=== PATIENT | female | born 1980 | race American Indian/Alaskan Native ===

== ENCOUNTER 2019-04-10 23:32 | Emergency (ER) | payer MEDICAID ==
[2019-04-11 00:41] LABS: Bilirubin,Urine NEG (Negative); Blood,Urine SM (Negative); Color,Urine Yellow (Yellow); Mucus,Urine 1+ /HPF; Protein,Urine <15 mg/dL mg/dL (Negative); Urobilinogen,Urine < 2.0 mg/dL (<2.0)
[2019-04-11] MEDS ORDERED: ZITHROMAX PO ONE (01:26)
[2019-04-11] MEDS ORDERED: ROCEPHIN IM ONE (01:27)
[2019-04-11] MEDS ORDERED: XYLOCAINE 1% MPF 5 mL INFILTRATI ONE (01:27)
--- NOTE | 2019-04-11 01:29 | Emergency Department Report ---
HPI - General Chief Complaint: Urogenital-Female Time Seen by Provider: 04/11/19 00:46 - HPI HPI: Room 40 The patient is a 38-year-old female presenting with a chief complaint of "I think I have an STD." The patient states 1 day she's had vaginal irritation and swelling. Patient states she's had vaginal discharge for one day and has been white in color. Patient is to dysuria but denies hematuria. Patient denies history of fever ED Past Medical Hx - Past Medical History Previous Medical History?: No - Surgical History Past Surgical History?: No Hx Cholecystectomy: Yes Additional Surgical History: Right-sided ectopic - Family History Family history: no significant - Social History Smoking Status: Never Smoker Substance Use Type: None - Medications Home Medications: Home Medications Medication Instructions Recorded Confirmed Last Taken Type Doxycycline Hyclate [Doxycycline 100 mg PO Q12HR #14 tab 04/11/19 Unknown Rx Hyclate TAB] Ibuprofen [Motrin 800 MG tab] 800 mg PO Q8HR PRN #20 tablet 04/11/19 Unknown Rx Phenazopyridine [Pyridium] 200 mg PO TID #6 tab 04/11/19 Unknown Rx ED Review of Systems ROS: Stated complaint: POSS STD/VAGINAL BURNING Other details as noted in HPI Constitutional: denies: fever Eyes: denies: eye pain ENT: denies: throat pain Respiratory: no symptoms reported Cardiovascular: denies: chest pain Endocrine: no symptoms reported Gastrointestinal: denies: abdominal pain Genitourinary: dysuria, discharge. denies: hematuria Musculoskeletal: denies: back pain Neurological: denies: headache Physical Exam - Physical Exam Physical Exam: GENERAL: The patient is well-developed well-nourished female lying on stretcher not appearing to be in acute distress. [] HEENT: Normocephalic. Atraumatic. Extraocular motions are intact. Patient has moist mucous membranes. NECK: Supple. Trachea midline CHEST/LUNGS: Clear to auscultation. There is no respiratory distress noted. HEART/CARDIOVASCULAR: Regular. There is no tachycardia. There is no gallop rub or murmur. ABDOMEN: Abdomen is soft, nontender. Patient has normal bowel sounds. There is no abdominal distention. SKIN: There is no rash. There is no edema. There is no diaphoresis. NEURO: The patient is awake, alert, and oriented. The patient is cooperative. The patient has normal speech MUSCULOSKELETAL: There is no evidence of acute injury. PELVIC: Moderate amount of white discharge present in the vault ED Medical Decision Making - Lab Data Laboratory Tests 04/10/19 04/11/19 Unknown Unknown Urine Color Yellow Urine Turbidity Slightly-cloudy Urine pH 5.0 Ur Specific [place] 1.028 Urine Protein <15 mg/dl Urine Glucose (UA) Neg Urine Ketones Neg Urine Blood Sm Urine Nitrite Neg Urine Bilirubin Neg Urine Urobilinogen < 2.0 Ur Leukocyte Esterase Mod Urine WBC (Auto) 5.0 Urine RBC (Auto) 9.0 U Epithel Cells (Auto) 4.0 Urine Mucus 1+ Urine HCG, Qual Negative Wet prep-no clue cells, no Trichomonas, no yeast - Differential Diagnosis vaginitis, bacterial vaginosis, urethritis, Critical care attestation.: If time is entered above; I have spent that time in minutes in the direct care of this critically ill patient, excluding procedure time. 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 Please follow up with her for further evaluation) Time of Disposition: 03:07
[2019-04-11 01:41] LABS: HCG Qualitative,Urine Negative (Negative)
[2019-04-11 03:13] VITALS: BP 137/99
== END 2019-04-11 03:16 | disposition home or self-care (01) ==
LOC: ED 23:32
DX: N89.8 Other specified noninflammatory disorders of vagina (principal); R30.0 Dysuria; Z90.49 Acquired absence of other specified parts of digestive tract
CPT/HCPCS: 81001; 81025; 87210; 87591; 96372; 99284; J0696

== ENCOUNTER 2020-11-20 19:45 | Emergency (ER) | payer BC, MEDICAID ==
--- NOTE | 2020-11-20 20:39 | Event Note ---
ED Screening Note Date of service: 11/20/20 Time: 20:37 ED Screening Note: 40 yo female presents to Ed for vaginal discharge x 2 days also cc of vaginal irritaion and pain This initial assessment/diagnostic orders/clinical plan/treatment(s) is/are subject to change based on patients health status, clinical progression and re- assessment by fellow clinical providers in the ED. Further treatment and workup at subsequent clinical providers discretion. Patient/guardian urged not to elope from the ED as their condition may be serious if not clinically assessed and managed. Initial orders include: ua,upt
--- NOTE | 2020-11-20 21:38 | Emergency Department Report ---
ED Female HPI - General Chief complaint: Urogenital-Female Stated complaint: ABNORMAL VAGINAL SMELL/DISCHARGE Source: patient Mode of arrival: Ambulatory Limitations: No Limitations - History of Present Illness Initial comments: Patient is a A0 40-year-old -[place] female with no past medical history presents to the ED with complaint of acute onset persistent severe vaginal irritation, vaginal discharge which she describes as thick white with malodorous male, urinary frequency and urgency and dysuria for the last 3 days, worse in the last 2 days. Patient denies vaginal bleeding, dyspareunia, low back pain, abdominal pain, nausea, vomiting, diarrhea, dizziness, syncope, chest pain or shortness of breath, fever and chills. MD Complaint: vaginal discharge, dysuria, other (vaginal irritation, vaginal pain, urinary urgency and frequency) -: Sudden, days(s) (3) Location: labia, other (vaginal) Severity: moderate Severity scale (0 -10): 5 Quality: sharp, burning, aching Consistency: constant Improves with: none Worsens with: urination Are you Now?: No Associated Symptoms: vaginal discharge, dysuria. denies: vaginal bleeding, abdominal pain, nausea/vomiting, fever/chills, headaches, loss of appetite, hematuria, rash, seizure, shortness of breath, syncope, weakness, other - Related Data Sexually active: Yes : 6 Para: 6 A: 0 Previous Rx's Medication Instructions Recorded Last Taken Type Doxycycline Hyclate [Doxycycline 100 mg PO Q12HR #14 tab 04/11/19 Unknown Rx Hyclate TAB] Fluconazole [Diflucan TAB] 200 mg PO QDAY #2 tablet 11/21/20 Unknown Rx Ibuprofen [Motrin 800 MG tab] 800 mg PO Q8HR PRN #30 tablet 11/21/20 Unknown Rx Phenazopyridine [Pyridium] 200 mg PO TID #6 tab 11/21/20 Unknown Rx metroNIDAZOLE [Flagyl] 500 mg PO Q12HR #14 tab 11/21/20 Unknown Rx Allergies Allergy/AdvReac Type Severity Reaction Status Date / Time No Known Allergies Allergy Unverified 04/10/19 23:45 ED Review of Systems ROS: Stated complaint: ABNORMAL VAGINAL SMELL/DISCHARGE Other details as noted in HPI Constitutional: denies: chills, fever Eyes: denies: eye pain, eye discharge, vision change ENT: denies: ear pain, throat pain Respiratory: denies: cough, shortness of breath, wheezing Cardiovascular: denies: chest pain, palpitations Endocrine: no symptoms reported Gastrointestinal: denies: abdominal pain, nausea, diarrhea Genitourinary: urgency, dysuria, frequency, discharge Musculoskeletal: denies: back pain, joint swelling, arthralgia Skin: denies: rash, lesions Neurological: denies: headache, weakness, paresthesias Psychiatric: denies: anxiety, depression Hematological/Lymphatic: denies: easy bleeding, easy bruising ED Past Medical Hx - Past Medical History Previous Medical History?: No - Surgical History Past Surgical History?: No Hx Cholecystectomy: Yes Additional Surgical History: Right-sided ectopic - Social History Smoking Status: Never Smoker Substance Use Type: None - Medications Home Medications: Home Medications Medication Instructions Recorded Confirmed Last Taken Type Doxycycline Hyclate [Doxycycline 100 mg PO Q12HR #14 tab 04/11/19 Unknown Rx Hyclate TAB] Fluconazole [Diflucan TAB] 200 mg PO QDAY #2 tablet 11/21/20 Unknown Rx Ibuprofen [Motrin 800 MG tab] 800 mg PO Q8HR PRN #30 tablet 11/21/20 Unknown Rx Phenazopyridine [Pyridium] 200 mg PO TID #6 tab 11/21/20 Unknown Rx metroNIDAZOLE [Flagyl] 500 mg PO Q12HR #14 tab 11/21/20 Unknown Rx ED Physical Exam - General Limitations: No Limitations General appearance: alert, in no apparent distress - Head Head exam: Present: atraumatic, normocephalic, normal inspection - Eye Eye exam: Present: normal appearance, PERRL, EOMI Pupils: Present: normal accommodation - ENT ENT exam: Present: normal exam, normal orophraynx, mucous membranes moist, TM's normal bilaterally, normal external ear exam - Neck Neck exam: Present: normal inspection, full ROM - Respiratory Respiratory exam: Present: normal lung sounds bilaterally. Absent: respiratory distress, wheezes, rales, rhonchi, chest wall tenderness, accessory muscle use, prolonged expiratory - Cardiovascular Cardiovascular Exam: Present: regular rate, normal rhythm, normal heart sounds. Absent: systolic murmur, diastolic murmur, rubs, gallop - GI/Abdominal GI/Abdominal exam: Present: soft, normal bowel sounds. Absent: distended, tenderness, guarding, rebound, hyperactive bowel sounds, hypoactive bowel sounds, organomegaly, mass - Bi-manual exam: Present: other (Pelvic exam deferred, patient preferred self swab) - Extremities Exam Extremities exam: Present: normal inspection, full ROM, normal capillary refill - Back Exam Back exam: Present: normal inspection, full ROM. Absent: tenderness, CVA tenderness (R), muscle spasm, paraspinal tenderness, vertebral tenderness - Neurological Exam Neurological exam: Present: alert, oriented X3, CN II-XII intact, normal gait, reflexes normal - Psychiatric Psychiatric exam: Present: normal affect, normal mood - Skin Skin exam: Present: warm, dry, intact, normal color. Absent: rash ED Course Vital Signs 11/20/20 11/21/20 20:37 01:14 Temperature 99.2 F Pulse Rate 98 H 93 H Respiratory 16 17 Rate Blood Pressure 138/93 O2 Sat by Pulse 98 99 Oximetry ED Medical Decision Making - Medical Decision Making This is a A0 40-year-old -[place] female with no past medical history presents to the ED with complaint of acute onset persistent severe vaginal irritation, vaginal discharge which she describes as thick white with malodorous male, urinary frequency and urgency and dysuria for the last 3 days, worse in the last 2 days. In the ED, patient is alert and oriented x3 and is not in any distress. Urinalysis is unremarkable and wet prep test was positive for Gardnerella vaginalis. Patient was therefore discharged home on medications including antibiotics and advised to follow-up with her primary care physician or [facility] physician in 5 to 7 days for reevaluation or return to the ED immediately if symptoms get worse. - Differential Diagnosis Bacterial vaginosis; UTI; Allison vaginitis; trichomonas Critical care attestation.: If time is entered above; I have spent that time in minutes in the direct care of this critically ill patient, excluding procedure time. ED Disposition Clinical Impression: Bacterial vaginosis, Candidal vaginitis Disposition: TO HOME OR SELFCARE Is pt being admited?: No Does the pt Need Aspirin: No Condition: Stable Instructions: Bacterial Vaginosis, [id number], Vaginal Yeast Infection, Adult, Bacterial Vaginosis (ED) Additional Instructions: Take medication with food, drink plenty of fluids and follow-up with your primary care physician in 5 to 7 days for reevaluation. Return to the ED immediately if symptoms get worse. Prescriptions: Fluconazole [Diflucan TAB] 200 mg PO QDAY #2 tablet metroNIDAZOLE [Flagyl] 500 mg PO Q12HR #14 tab Ibuprofen [Motrin 800 MG tab] 800 mg PO Q8HR PRN #30 tablet PRN Reason: Pain, Moderate (4-6) Phenazopyridine [Pyridium] 200 mg PO TID #6 tab Referrals: [facility] [Provider Group] - 3-5 Days Forms: STI Treatment and Prevention Time of Disposition: 21:38 Print Language: BELIZEAN
[2020-11-20 23:40] LABS: Bilirubin,Urine NEG (Negative); Blood,Urine SM (Negative); Color,Urine Yellow (Yellow); Mucus,Urine 1+ /HPF; Protein,Urine <15 mg/dL mg/dL (Negative)
[2020-11-21 00:03] LABS: HCG Qualitative,Urine Negative (Negative)
[2020-11-21 01:12] VITALS: BP 138/93
== END 2020-11-21 01:43 | disposition home or self-care (01) ==
LOC: ED 19:45
DX: B37.9 Candidiasis, unspecified (principal); N76.0 Acute vaginitis; B96.89 Other specified bacterial agents as the cause of diseases classified elsewhere; Z90.49 Acquired absence of other specified parts of digestive tract; Z79.1 Long term (current) use of non-steroidal anti-inflammatories (NSAID); Z79.899 Other long term (current) drug therapy; Z98.890 Other specified postprocedural states
CPT/HCPCS: 81001; 81025; 87210

== ENCOUNTER 2021-05-06 19:26 | Emergency (ER) | payer MEDICAID ==
[2021-05-06 19:40] VITALS: BP 148/99
[2021-05-06] MEDS ORDERED: LIDOCAINE-MPF (1%) 10 MG/1 ML VIAL 5 ML INFILTRATI ONE (19:45)
--- NOTE | 2021-05-06 19:48 | Emergency Department Report ---
ED Female HPI - General Chief complaint: Urogenital-Female Stated complaint: VAGINAL DISCHARGE Time Seen by Provider: 05/06/21 19:38 Source: patient Mode of arrival: Ambulatory Limitations: No Limitations - History of Present Illness Initial comments: The patient was evaluated in the emergency department for symptoms described in the history of present illness. He/she was evaluated in the context of the global COVID-19 pandemic, which necessitated consideration that the patient might be at risk for infection with the virus that causes COVID-19. Institutional protocols and algorithms that pertain to the evaluation of patients at risk for COVID-19 are in a state of rapid change based on information released by regulatory bodies including the CDC and federal and state organizations. These policies and algorithms were followed during the patient's care in the emergency department. Please note that these policies, procedures and recommendations changed on a rapid basis. 40-year-old obese -Citizen Of [place] female presents to the emergency room for vaginal discharge that started today. Patient admits to unprotected intercourse. Patient denies any abdominal pain no dysuria. She is 9 para 6. Last menstrual period was 2-second 21. She denies any pain at this time. Reports no past medical history takes no medications on a daily basis. MD Complaint: vaginal discharge, possible STD -: This morning Severity scale (0 -10): 0 Last Menstrual Period: 03/31/21 EDC: 01/05/22 Associated Symptoms: vaginal discharge. denies: vaginal bleeding, abdominal pain, nausea/vomiting, fever/chills, dysuria - Related Data Sexually active: Yes : 9 Para: 6 Previous Rx's Medication Instructions Recorded Last Taken Type Doxycycline Hyclate [Doxycycline 100 mg PO Q12HR #14 tab 04/11/19 Unknown Rx Hyclate TAB] Fluconazole [Diflucan TAB] 200 mg PO QDAY #2 tablet 11/21/20 Unknown Rx Ibuprofen [Motrin 800 MG tab] 800 mg PO Q8HR PRN #30 tablet 11/21/20 Unknown Rx Phenazopyridine [Pyridium] 200 mg PO TID #6 tab 11/21/20 Unknown Rx Azithromycin 500 mg PO ONCE #2 tablet 05/06/21 Unknown Rx metroNIDAZOLE [Flagyl TAB] 500 mg PO Q12HR #14 tab 05/06/21 Unknown Rx Allergies Allergy/AdvReac Type Severity Reaction Status Date / Time No Known Allergies Allergy Unverified 04/10/19 23:45 ED Review of Systems ROS: Stated complaint: VAGINAL DISCHARGE Other details as noted in HPI Comment: All other systems reviewed and negative ED Past Medical Hx - Past Medical History Previous Medical History?: Yes Additional medical history: ectopic - Surgical History Past Surgical History?: Yes Hx Cholecystectomy: Yes Additional Surgical History: Right-sided ectopic - Social History Smoking Status: Never Smoker Substance Use Type: None - Medications Home Medications: Home Medications Medication Instructions Recorded Confirmed Last Taken Type Doxycycline Hyclate [Doxycycline 100 mg PO Q12HR #14 tab 04/11/19 Unknown Rx Hyclate TAB] Fluconazole [Diflucan TAB] 200 mg PO QDAY #2 tablet 11/21/20 Unknown Rx Ibuprofen [Motrin 800 MG tab] 800 mg PO Q8HR PRN #30 tablet 11/21/20 Unknown Rx Phenazopyridine [Pyridium] 200 mg PO TID #6 tab 11/21/20 Unknown Rx Azithromycin 500 mg PO ONCE #2 tablet 05/06/21 Unknown Rx metroNIDAZOLE [Flagyl TAB] 500 mg PO Q12HR #14 tab 05/06/21 Unknown Rx ED Physical Exam - General Limitations: No Limitations General appearance: alert, in no apparent distress - Head Head exam: Present: atraumatic, normocephalic - Eye Eye exam: Present: normal appearance - ENT ENT exam: Present: mucous membranes moist - Neck Neck exam: Present: normal inspection - Respiratory Respiratory exam: Present: normal lung sounds bilaterally. Absent: respiratory distress - Cardiovascular Cardiovascular Exam: Present: regular rate, normal rhythm. Absent: systolic murmur, diastolic murmur, rubs, gallop - GI/Abdominal GI/Abdominal exam: Present: soft, normal bowel sounds - Extremities Exam Extremities exam: Present: normal inspection - Back Exam Back exam: Present: normal inspection - Neurological Exam Neurological exam: Present: alert, oriented X3 - Psychiatric Psychiatric exam: Present: normal affect, normal mood - Skin Skin exam: Present: warm, dry, intact, normal color. Absent: rash ED Course Vital Signs 05/06/21 19:32 Temperature 98 F Pulse Rate 85 Respiratory 16 Rate Blood Pressure 148/99 [Right] O2 Sat by Pulse 98 Oximetry ED Medical Decision Making - Medical Decision Making 40-year-old obese -Citizen Of [place] female presents to the emergency room for vaginal discharge that started today. Patient admits to unprotected intercourse. Patient denies any abdominal pain no dysuria. She is 9 para 6. Last menstrual period was 2-second 21. She denies any pain at this time. Reports no past medical history takes no medications on a daily basis. Rocephin 1 g IM. Patient be discharged on azithromycin and to follow-up with her primary care provider Dr. aDy. Critical care attestation.: If time is entered above; I have spent that time in minutes in the direct care of this critically ill patient, excluding procedure time. ED Disposition Clinical Impression: Vaginitis Disposition: 01 HOME / SELF CARE / HOMELESS Is pt being admited?: No Does the pt Need Aspirin: No Condition: Stable Instructions: Vaginitis, [id number] Additional Instructions: Complete medication. Follow-up with the health department for full STD evaluation as well as follow-up with your primary care provider. Prescriptions: Azithromycin 500 mg PO ONCE #2 tablet metroNIDAZOLE [Flagyl TAB] 500 mg PO Q12HR #14 tab Referrals: LESIA DAY MD [Referring] - 3-5 Days Forms: Work/School Release Form(ED) Time of Disposition: 19:50
== END 2021-05-06 20:18 | disposition home or self-care (01) ==
LOC: ED 19:26
DX: N76.0 Acute vaginitis (principal); Z90.49 Acquired absence of other specified parts of digestive tract
CPT/HCPCS: 96372; 99282; J0696